=== PATIENT | female | born 1970 | race Caucasian/White ===

== ENCOUNTER 2016-10-07 10:55 | Emergency (ER) | payer OTHER, BC ==
[~2016-10-07] VITALS: Ht 160 cm; Wt 79.0 kg
[~2016-10-07 10:55] MED LIST: Z.0.NO CURRENT MEDS
[2016-10-07 10:57] VITALS: BP 125/88; PULSE 86; RESP 15; TEMP 98.3; O2SAT 98
[2016-10-07] MEDS ORDERED: AMLO5TAB2 PO (11:24)
[2016-10-07] MEDS ORDERED: BENA10TA PO (11:24)
[2016-10-07] MEDS ORDERED: METF500T PO (11:24)
--- NOTE | 2016-10-07 11:44 | PD ---
HPI Chief Complaint: Pain: Acute or Chronic Time Seen by Provider: 11:43 Travel History International Travel<30 days: No Contact w/Intl Traveler<30days: No Traveled to known affect area: No History of Present Illness HPI 46-year-old female came to the emergency room with history of questionable DVT in her right lower extremity. Patient says that she sees her primary care regarding an injury she had sustained in her right leg in February 2015. She has had pain in that leg but today her primary care palpated the calf and thought he felt a clot. He has sent her here to rule out DVT. [facility] Past Medical History Narrative Medical List of her past medical, surgical, social and family history as reviewed from the nursing note. Diabetes: Yes Patient Takes Glucophage: Yes Hypertension: Yes Influenza Vaccination: No ?: Not Family History Family Myocardial Infarction: Yes Social History Alcohol Use: No Tobacco Use: Yes (1 ppd) Substance Use: No Allergies-Medications (Allergen,Severity, Reaction): Coded Allergies: Morphine (Verified Allergy, Mild, RASH, 10/07/16) Comments List of her allergies reviewed from the nursing note. Reported Meds & Prescriptions Reported Meds & Active Scripts Active Reported Amlodipine (Amlodipine Besylate) 5 Mg Tab 5 Mg PO DAILY Benazepril (Benazepril HCl) 10 Mg Tab 10 Mg PO BID Metformin (Metformin HCl) 500 Mg Tab 250 Mg PO BIDPC With meals Narrative Medication List of her home medications reviewed from the nursing note. Review of Systems Except as stated in HPI: all other systems reviewed are Neg Physical Exam Narrative GENERAL: Awake, alert, no obvious distress SKIN: Focused skin assessment warm/dry. HEAD: Atraumatic. Normocephalic. EYES: Pupils equal and round. No scleral icterus. No injection or drainage. ENT: No nasal bleeding or discharge. Mucous membranes pink and moist. NECK: Trachea midline. No JVD. CARDIOVASCULAR: Regular rate and rhythm. No murmur appreciated. RESPIRATORY: No accessory muscle use. Clear to auscultation. Breath sounds equal bilaterally. GASTROINTESTINAL: Abdomen soft, non-tender, nondistended. Hepatic and splenic margins not palpable. MUSCULOSKELETAL: No obvious deformities. No clubbing. No cyanosis. No edema. NEUROLOGICAL: Awake and alert. No obvious cranial nerve deficits. Motor grossly within normal limits. Normal speech. PSYCHIATRIC: Appropriate mood and affect; insight and judgment normal. Data Data Last Documented VS Orders Us Leg Venous Doppler (10/07/16 ) MDM Medical Decision Making Medical Screen Exam Complete: Yes Emergency Medical Condition: Yes Medical Record Reviewed: Yes Differential Diagnosis DVT, chronic pain Narrative Course 12:28 PM awaiting for the ultrasound of the leg to be done and resulted. If patient does not have a DVT she'll be discharged home with instructions. Procedures EKG Prior to Arrival: No Diagnosis Primary Impression: Chronic pain Qualified Code: G89.29 - Other chronic pain Referrals: Primary Care Physician Additional Instructions: Please follow-up with your primary care. Med/Other Pt SpecificInfo: No Change to Meds Condition: Vinita Blue MD Oct 07, 2016 11:44 Additional Instructions: Please follow-up with your primary care. Med/Other Pt SpecificInfo: No Change to Meds Condition: Vinita Blue MD Oct 07, 2016 11:44
--- NOTE | 2016-10-07 12:44 | RADRPT ---
EXAM DATE/TIME: 10/07/2016 12:24 [place] COMPARISON: No previous studies available for comparison. INDICATIONS : Right leg pain. MEDICAL HISTORY : Hypertension. Diabetes. SURGICAL HISTORY : Left carpal tunnel surgery. ENCOUNTER: Initial ACUITY: 1 day PAIN SCORE: 0/10 LOCATION: Right leg. TECHNIQUE: Venous ultrasound of the leg was performed from the inguinal ligament to the proximal calf. Real-apollo e, color Doppler and spectral tracing, compression and augmentation techniques were used. FINDINGS: There is normal compressibility of the deep venous system from the inguinal region to the proximal ca lf. No echogenic clot is seen in the lumen of the common femoral, femoral, popliteal, and posterior tibial veins. There is a normal response of the venous system to proximal and distal augmentation an d respiration. CONCLUSION: Normal examination. Mik Rowley MD on October 07, 2016 at 12:42 Board Certified Radiologist. This report was verified electronically.
== END 2016-10-07 14:54 | disposition home or self-care (01) ==
LOC: NEPD 10:55
DX: G89.29 Other chronic pain (principal); M79.604 Pain in right leg
CPT/HCPCS: 93971